=== PATIENT | female | born 1995 | race Caucasian/White ===

== ENCOUNTER → 2016-04-14 | Day surgery (SDC) | payer OTHER ==
[2016-04-07 11:01] VITALS: Ht 180.3 cm; Wt 95.5 kg
[~2016-04-14] VITALS: Ht 180.3 cm; Wt 95.5 kg
[~2016-04-14] MED LIST: ADVIN25/60 INH; LIDOCAINE HCL 2% 2 ML VIAL (20MG/ML) ONE; MELA1TAB22 PO; MIDAZOLAM HCL 1 MG/ML 2ML VIAL ONE; ONDANSETRON INJ 2 MG/ML 2 ML VIAL ONE; PRLSR20 PO; PROB1TAB16 PO; PROPOFOL IV EMULSION 10 MG/ML 20 ML VIAL IV ONE; SODIUM CHLORIDE 0.9% 500ML 500 ML IV ONE; VNTHFA/IN INH
--- NOTE | 2016-04-14 11:48 | Endo History and Physical ---
History & Physical Date of Service: Apr 14, 2016. Chief Complaint: Abdominal pain and bloating Referring Physician: Dr. Jaramillo History of Present Illness 21 yo CF who presents for EGD secondary to abdominal pain and bloating. Past Surgical History Hx Cardiac Surgery: No Hx Internal Defibrillator: No Hx Pacemaker: No Hx Abdominal Surgery: No Hx of Implantable Prosthesis: No Hx Post-Op Nausea and Vomiting: No Hx Cancer Surgery: No Hx Thoracic Surgery: No Hx Orthopedic: No Hx Urinary Tract Surgery: No Family History None Social History Smoking Status: Never Smoker Hx Substance Use: No Hx Alcohol Use: Yes (OCCASSIONALLY) Allergies Coded Allergies: Latex1 -Allergic Contact Dermititis (Verified Allergy, Mild, RASH, ) Dairy (Verified Allergy, Unknown, GI SYMPTOMS, 04/07/16) Gluten (Verified Adverse Reaction, Unknown, GI SYMPTOMS, 04/07/16) Current Medications Reported Home Medications Medications Dose Route/Sig Max Daily Dose Days Date Category Probiotic (Probiotic Product) 1 Tab Tab 1 Tab PO HS 04/07/16 Reported Ventolin Hfa (Albuterol) 200 Puffs/95627 Mcg Aers 2-4 Puffs INH Q6H PRN 04/07/16 Reported Advair Diskus 250/50 60 Dose (Fluticasone Prop/Salmeterol) 1 Ea Aerp 1 Puff INH DAILY PRN 04/07/16 Reported Melatonin (Melatonin-Pyridoxine) 1 Tab Tab 5 Mg PO HS 04/07/16 Reported Prilosec (Omeprazole) 20 Mg Capcr 20 Mg PO QAM 04/07/16 Reported Vital Signs Weight (Kilograms): 95.45 Height (Feet): 5 Height (Inches): 11 Physical Exam General Appearance: WD/WN, no apparent distress Respiratory/Chest: Auscultation: breath sounds normal Cardiovascular: Heart Auscultation: RRR Abdomen: Bowel Sounds: normal Inspection & Palpation: soft, non-distended, no tenderness, guarding & rebound Assessment and Plan Assessment: 21 yo CF who presents for EGD secondary to abdominal pain and bloating. Plan: Proceed with EGD.
--- NOTE | 2016-04-14 12:23 | Discharge Instructions ---
Endoscopy Patient Instructions Date / Procedure(s) Performed Apr 14, 2016. EGD Allergy Information Coded Allergies: Latex1 -Allergic Contact Dermititis (Verified Allergy, Mild, RASH, ) Dairy (Verified Allergy, Unknown, GI SYMPTOMS, 04/07/16) Gluten (Verified Adverse Reaction, Unknown, GI SYMPTOMS, 04/07/16) Discharge Date / Findings Apr 14, 2016. Gastritis s/p biopsies Duodenal biopsies Medication Instructions OK to resume all medications today as prescribed Reported Home Medications Medications Dose Route/Sig Max Daily Dose Days Date Category Probiotic (Probiotic Product) 1 Tab Tab 1 Tab PO HS 04/07/16 Reported Ventolin Hfa (Albuterol) 200 Puffs/11094 Mcg Aers 2-4 Puffs INH Q6H PRN 04/07/16 Reported Advair Diskus 250/50 60 Dose (Fluticasone Prop/Salmeterol) 1 Ea Aerp 1 Puff INH DAILY PRN 04/07/16 Reported Melatonin (Melatonin-Pyridoxine) 1 Tab Tab 5 Mg PO HS 04/07/16 Reported Prilosec (Omeprazole) 20 Mg Capcr 20 Mg PO QAM 04/07/16 Reported Provider Instructions Activity Restrictions - No exercising or heavy lifting for 24 hours. - Do not drink alcohol the day of the procedure. - Do not drive a car or operate machinery until the day after the procedure. - Do not make any important decisions or sign important papers in 24 hours after the procedure. Following Day: - Return to full activity which may include returning to work/school. Diet Start your diet with liquids and light foods (jello, soup, juice, toast). Then eat your usual diet if not nauseated. Treatment For Common After Affects For mild abdominal pain, bloating, or excessive gas: - Rest - Eat lightly - Lie on right side Follow-Up Information Follow-up with Dr Suarez as scheduled Anesthesia Information What You Should Know You have had a procedure that required some medicine to reduce anxiety and discomfort. This treatment is called moderate sedation. After receiving the treatment, you may be sleepy, but you will be able to breathe on your own. The effects of the treatment may last for several hours. Follow these instructions along with Activity/Diet recommendations noted above: * Do NOT do anything where dizziness or clumsiness would be dangerous. * Rest quietly at home today, then you can be up and about tomorrow. * Have a responsible person stay with you the rest of today. * You may have had an I.V. today. If so, you may take the dressing off later today. Recommendations Call your doctor if: * Trouble breathing * Continuous vomiting for more than 24 hours * Temperature above 101 degrees * Severe abdominal pain or bloating * Pain not relieved by pain medicine ordered * There is increased drainage or redness from any incision * A large amount of rectal bleeding greater than 2-3 tablespoons. (If you had a polyp/s removed or have hemorrhoids, a small amount of blood - from the rectum is to be expected.) * You have any unanswered questions or concerns. IN THE EVENT OF A SERIOUS EMERGENCY, GO TO THE NEAREST EMERGENCY ROOM Your discharge instructions were prepared by provider Sheng Al. Patient Instructions Signature Page Mary Trejo Patient (or Guardian) Signature/Date: I have read and understand the instructions given to me by my caregivers. Caregiver/RN/Doctor Signature/Date: The above-named patient and/or guardian has received patient instructions on this date. + Original Patient Signature Page (only) stays with chart. Please make copy for patient.
--- NOTE | 2016-04-14 12:38 | GI REPORT ---
Procedure Date: 04/14/2016 11:58 AM Procedure: Upper GI endoscopy Indications: Epigastric abdominal pain, Abdominal bloating Medicines: Monitored Anesthesia Care Complications: No immediate complications. Estimated Blood Loss: Estimated blood loss: none. Procedure: Pre-Anesthesia Assessment: - Prior to the procedure, a History and Physical was performed, and patient medications and allergies were reviewed. The patient's tolerance of previous anesthesia was also reviewed. The risks and benefits of the procedure and the sedation options and risks were discussed with the patient. All questions were answered, and informed consent was obtained. Prior Anticoagulants: The patient has taken no previous anticoagulant or antiplatelet agents. ASA Grade Assessment: II - A patient with mild systemic disease. After reviewing the risks and benefits, the patient was deemed in satisfactory condition to undergo the procedure. After obtaining informed consent, the endoscope was passed under direct vision. Throughout the procedure, the patient's blood pressure, pulse, and oxygen saturations were monitored continuously. The scope was introduced through the mouth, and advanced to the second part of duodenum. The upper GI endoscopy was accomplished without difficulty. The patient tolerated the procedure well. Findings: The esophagus was normal. Localized mild inflammation characterized by erythema was found in the gastric antrum. Biopsies were taken with a cold forceps for histology. The examined duodenum was normal. Biopsies for histology were taken with a cold forceps for evaluation of celiac disease. Impression: - Normal esophagus. - Gastritis. Biopsied. - Normal examined duodenum. Biopsied. Recommendation: - Resume previous diet. - Continue present medications. - Await pathology results. - Return to GI office as previously scheduled. Sheng Al DO 04/14/2016 12:37:46 PM This report has been signed electronically. Note Initiated On: 04/14/2016 11:58 AM
[2016-04-14 12:52] VITALS: BP 116/73; PULSE 72; O2SAT 100
--- NOTE | 2016-04-14 13:32 | Anesthesiology Progress Note ---
Anesthesia Post Op Note Date & Time Apr 14, 2016 at 13:32 Vital Signs Pain Intensity: 0 Vital Signs Past 12 Hours Date Time Temp Pulse Resp B/P Pulse Ox O2 Delivery O2 Flow Rate FiO2 04/14/16 12:52 72 20 116/73 100 Room Air 04/14/16 12:38 70 20 120/73 98 Room Air 04/14/16 12:23 64 18 120/67 95 Room Air 04/14/16 11:50 36.9 62 16 117/58 98 Room Air Notes Mental Status: alert / awake / arousable Nausea / Vomiting: adequately controlled Pain: adequately controlled Airway Patency, RR, SpO2: stable & adequate BP & HR: stable & adequate Hydration State: stable & adequate Anesthetic Complications: no major complications apparent
== END | disposition home or self-care (01) ==
LOC: C.GI 11:21
PROVIDERS: ATTEND Internal Medicine
DX: K29.50 Unspecified chronic gastritis without bleeding (principal); R14.0 Abdominal distension (gaseous); Z91.040 Latex allergy status; Z91.011 Allergy to milk products

== ENCOUNTER → 2016-04-21 | Outpatient (CLI) | payer OTHER ==
[~2016-04-21] MED LIST changes: -LIDOCAINE HCL 2% 2 ML VIAL (20MG/ML) ONE; -MIDAZOLAM HCL 1 MG/ML 2ML VIAL ONE; -ONDANSETRON INJ 2 MG/ML 2 ML VIAL ONE; -PROPOFOL IV EMULSION 10 MG/ML 20 ML VIAL IV ONE; -SODIUM CHLORIDE 0.9% 500ML 500 ML IV ONE
== END | disposition home or self-care (01) ==
LOC: C.PAPS 16:04
PROVIDERS: ATTEND Obstetrics & Gynecology
DX: Z01.419 Encounter for gynecological examination (general) (routine) without abnormal findings (principal)

== ENCOUNTER → 2016-09-22 | Outpatient (CLI) | payer OTHER | END | disposition home or self-care (01) | LOC: C.LABSPEC 14:01 | PROVIDERS: ATTEND Physician Assistant | DX: N89.8 Other specified noninflammatory disorders of vagina (principal) ==